=== PATIENT | male | born 1995 | race Caucasian/White ===

== ENCOUNTER 2021-07-06 07:53 | Outpatient (CLI) | payer OTHER ==
[2021-07-06] MEDS ORDERED: Iopamidol 300 61% 100 ML VIAL FS ONE (15:13)
== END 2021-07-06 07:54 | disposition home or self-care (01) ==
LOC: CSHCT 07:53
PROVIDERS: ATTEND Internal Medicine Gastroenterology
DX: R10.33 Periumbilical pain (principal); R19.4 Change in bowel habit; K76.89 Other specified diseases of liver
CPT/HCPCS: 74177; Q9967